=== PATIENT | female | born 1940 ===

== ENCOUNTER → 2024-08-17 | Outpatient (CLI) | payer MEDICARE ==
[2024-08-17 15:37] LABS: HCT 41.5 % (37.2-46.3); HGB 13.3 g/dL (12.0-15.0); MCH 31.1 pg (27.0-32.0); NRBC Per 100 WBC 0 X 10*3/uL (0.00-0.01); Platelet Count 244 X 10*3/uL (140-440); RBC 4.28 X 10*6/uL (4.10-5.20)
[2024-08-17 15:51] LABS: Blood Urea Nitrogen 10.5 mg/dL (9.0-27.0); Carbon Dioxide 23.2 mmol/L (21.6-31.8); Chloride 102 mmol/L (96-109); Potassium 4.2 mmol/L (3.5-5.5); Sodium 139 mmol/L (135-145)
== END | disposition home or self-care (01) ==
LOC: LABPAT 09:58
PROVIDERS: ATTEND Internal Medicine
DX: Z01.812 Encounter for preprocedural laboratory examination (principal); R07.9 Chest pain, unspecified; R06.02 Shortness of breath
CPT/HCPCS: 80051; 82565; 84520; 85027

== ENCOUNTER 2024-08-21 08:59 | Day surgery (SDC) | payer MEDICARE ==
[~2024-08-21 08:59] MED LIST: ALPRAZolam 0.25 MG TAB PO PRN; ALPRAZolam 0.5 MG TAB PO PRN; ATORVASTATIN 80 MG TAB PO STA; BENZOCAINE SPRAY 1 EACH MM SCH; HEPARIN SODIUM,PORCINE (1 ML) 2,500 UNIT in SODIUM CHLORIDE 0.9% 250 ML IRRIGATION PRN; HEPARIN SODIUM,PORCINE 10,000 UNIT in SODIUM CHLORIDE 0.9% 1,000 ML IRRIGATION PRN; MIDAZOLAM 2 MG/2 ML VIAL IV PRN; NITROGLYCERIN SL TABS 0.4 MG TAB SUBLINGUAL PRN; fentaNYL (PF) 50 MCG/ML 5 ML AMP IVP PRN
[2024-08-21] MEDS: IV FLUID CONTINUATION 1,000 ML IV ONE ×2 (09:10→10:23)
[2024-08-21] MEDS: ASPIRIN 325 MG TAB PO STA (09:18)
[2024-08-21] MEDS: SODIUM CHLORIDE 0.9% 1,000 ML in EMPTY BAG 1 BAG IV SCH (09:18)
[2024-08-21 09:29] VITALS: RESP 16; TEMP 98
[2024-08-21] MEDS: BENZOCAINE SPRAY 1 EACH MUCOUS MEM ONE ×2 (10:03→10:05)
[2024-08-21] MEDS: MIDAZOLAM 2 MG/2 ML VIAL IVP ONE (10:05)
[2024-08-21] MEDS: fentaNYL (PF) 50 MCG/ML 2 ML AMP IVP ONE (10:05)
[2024-08-21] MEDS: HEPARIN SODIUM,PORCINE (1 ML) 2,500 UNIT in SODIUM CHLORIDE 0.9% 250 ML IRRIGATION ONE (10:23)
[2024-08-21] MEDS: HEPARIN SODIUM (1,000 UNIT/ML) 1,000 UNIT in SODIUM CHLORIDE 0.9% 1,000 ML IRRIGATION ONE (10:23)
[2024-08-21] MEDS: LIDOCAINE 1% INJ 10MG/ML (20 ML MDV) SQ ONE (10:29)
[2024-08-21] MEDS: VERAPAMIL SYRINGE (5 MG/10 ML) INTRAARTER ONE (10:30)
[2024-08-21] MEDS: HEPARIN SODIUM 1,000 UN/ML (10ML VL) IV ONE (10:33)
[2024-08-21] MEDS: IOPAMIDOL-370 100ML BTL INJ ONE (10:39)
--- NOTE | 2024-08-21 10:44 | P.TEE ---
Description of Procedure(s): Procedure performed: Transesophageal Echocardiogram with color flow doppler, pulsed wave doppler and continuous wave doppler, moderate conscious sedation Moderate conscious sedation: Moderate conscious sedation was supplied with direct supervision of myself using Versed and Fentanyl. Complications: none Indications: Mitral regurgitation PROCEDURE: After the risks, benefits and alternatives of the above mentioned procedure was explained in detail with the patient, informed consent was obtained. Patient was brought to the lab in a fasting state. Patient was given IV Versed and Fentanyl for sedation. The throat was sprayed with Hurricane to anesthetize the throat. A lubricated Omni probe was then introduced into the esophagus and stomach and multiple views were obtained. 2D echo with color flow doppler, pulsed wave doppler and continuous wave doppler was utilized. Agitated saline bubbles were injected to assess for any intra-atrial shunt. The probe was then removed. Patient tolerated the procedure well. Patient was transferred to the post procedure area in stable and satisfactory condition. FINDINGS: 1. The aortic valve is tricuspid with normal function with mild aortic regurgitation. 2. The mitral valve appears be normal with moderate central mitral regurgitation. 3. Tricuspid valve appears to be normal. 4. The interatrial septum is intact. No evidence of PFO. 5. Left atrial appendage is free of clot. 6. Left ventricular ejection fraction 50 to 55% 7. Moderate to severe left atrial enlargement
--- NOTE | 2024-08-21 10:45 | P.CARDCATH ---
Description of Procedure: PROCEDURES PERFORMED: Left heart catheterization, bilateral coronary angiography, ultrasound guided arterial access INDICATION: Mitral regurgitation, abnormal stress test CONSENT:I have discussed the risks, benefits and alternative therapies for the above-mentioned procedure and for both sedation/analgesia as well as necessary blood product administration, if indicated, as they pertain to this patient. The patient has indicated understanding and acceptance of the risks and procedures discussed. PROCEDURE: After the risks, benefits and alternatives of the above mentioned procedure explained in detail with the patient, informed consent was obtained. Patient was taken to the catheterization lab and prepped and draped in usual fashion. Ultrasound guidance was used to assess for arterial access. 1% lidocaine was used to anesthetize the right radial artery. A 6-Fijian sheath was placed in the right radial artery using modified Seldinger technique and ultrasound guidance. Left coronary angiography was performed with a 5-Fijian JL 3.5 catheter and right coronary angiography was performed with a 5-Fijian FR5 catheter in various views. A 5-Fijian FR5 catheter was inserted into the left ventricle and pressure measurements were obtained. The right radial sheath was removed and a TR band was placed with hemostasis achieved. The patient tolerated the procedure well. Patient was transported back to the post catheterization holding area in stable condition. Conscious Sedation: Patient was monitored under the direct supervision of myself for conscious sedation using Versed and fentanyl for a total duration of 11 minutes HEMODYNAMICS: Aorta: 154/78 LV: 154/11, LVEDP 18 SELECTIVE CORONARY ARTERIOGRAPHY: LEFT MAIN: The left main is a large caliber vessel which bifurcates into the LAD and circumflex. There is no significant stenosis. LEFT ANTERIOR DESCENDING CORONARY ARTERY: LAD is a large caliber vessel which wraps around to the apex. There is a small amount of calcification with mild luminal irregularities 5% stenosis. LEFT CIRCUMFLEX CORONARY ARTERY: Left circumflex is a moderate caliber vessel w ithout significant stenosis. RIGHT CORONARY ARTERY: The right coronary artery is a large caliber vessel which gives off a PDA and PLV branch and is the dominant vessel. There is a small amount of calcification with mild luminal irregularities 5% stenosis FINAL IMPRESSION: 1. Relatively normal coronary arteries with only mild luminal irregularities, 5% stenosis 2. High normal left sided filling pressures PLAN: 1. Aggressive risk factor modification per most recent ACC/AHA guidelines. 2. Follow-up in the office in 1-2 weeks.
[2024-08-21 14:31] VITALS: BP 155/72; PULSE 68
== END 2024-08-21 14:35 | disposition home or self-care (01) ==
LOC: CATHCVL 08:59
PROVIDERS: ATTEND Internal Medicine
DX: I34.0 Nonrheumatic mitral (valve) insufficiency (principal); E78.5 Hyperlipidemia, unspecified; I10 Essential (primary) hypertension; M35.3 Polymyalgia rheumatica; Z72.0 Tobacco use; Z82.49 Family history of ischemic heart disease and other diseases of the circulatory system; Z79.899 Other long term (current) drug therapy
CPT/HCPCS: 93312; 93320; 93325; 93458; 99152; C1894; J2250; J1644 ×2; J2003; J3010; Q9967